=== PATIENT | male | born 1965 | race Caucasian/White ===

== ENCOUNTER 2019-03-20 23:06 | Emergency (ER) | payer OTHER ==
[~2019-03-20] VITALS: Ht 177.8 cm; Wt 71.7 kg
[2019-03-21] MEDS ORDERED: PROZAC10 MG (00:20)
[2019-03-21] MEDS ORDERED: ZYNCOF 20-400120 ML PO (03:51)
== END 2019-03-21 05:04 | disposition home or self-care (01) ==
LOC: ER 23:06
DX: J40 Bronchitis, not specified as acute or chronic (principal)